=== PATIENT | male | born 1935 | race Caucasian/White ===

== ENCOUNTER 2016-08-23 23:39 | Inpatient (IN) | payer OTHER ==
--- NOTE | ~2016-08-23 | HP ---
Unit #: [id number] #: [id number] Patient: HARDIK ALONSO [id number] [address] [place], [place] [address] [id number] I MR#: [id number] NAME: HARDIK ALONSO. ROOM: 53751 Age: 80 Sex: M Admission Date: 08/24/2016 : 1935 Attending Physician: Carlie Denton M.D. Primary Care Physician: Carlie Denton M.D. HISTORY AND PHYSICAL CHIEF COMPLAINT Shortness of breath. HISTORY OF PRESENT ILLNESS The patient is an 80-year-old male with a history of stroke in the past. Presented with shortness of breath. He came in through the emergency room. He was already on 2 liters of home O2. He has been short of breath for the last few days. He presented to the emergency room. Patient really could not provide a history at this time, quite confused. He was subsequently admitted. Here in the emergency room, the patient was noted to be in sinus tachycardia with premature atrial complexes. He has been seen by pulmonary at the time of my evaluation, and he has been started on vancomycin, Levaquin, broad-spectrum antibiotics. He was put on BiPAP with some improvement. PAST MEDICAL HISTORY 1. Significant for cerebrovascular accident. 2. Carotid artery disease. 3. Hypertension. 4. Benign prostatic hypertrophy. 5. B12 deficiency. 6. Hyperlipidemia. 7. Depression. HOME MEDICATIONS 1. Cyanocobalamin 100 mcg p.o. daily. 2. Aspirin 81 mg p.o. daily. 3. Colace 100 mg p.o. daily. l 4. Vitamin D3 800 units p.o. daily. 5. Protonix 40 mg before breakfast. 6. Proscar 5 mg p.o. daily. 7. Plavix 75 mg p.o. daily. 8. Zoloft 150 mg p.o. daily. 9. Afrin Nasal [place] b.i.d. 10. Chlorthalidone 12.5 mg b.i.d. 11. Baclofen 10 mg p.o. t.i.d. 12. Simvastatin 20 mg p.o. at bedtime. 13. Mirtazapine 7.5 mg at bedtime. 14. Milk of Magnesia 30 mL p.o. daily. 15. Tylenol 650 mg p.o. q.4 hours. 16. Coreg 3.125 mg p.o. b.i.d. 17. Hydralazine 100 mg p.o. t.i.d. Unit #: [id number] #: [id number] Patient: HARDIK ALONSO 18. Nepro 60 mL b.i.d. ALLERGIES Penicillin, tetanus toxoid. SOCIAL HISTORY snf resident under my care. FAMILY HISTORY Family history of coronary artery disease. REVIEW OF SYSTEMS Unable to obtain at this time. PHYSICAL EXAMINATION GENERAL: He was comfortable. Not in acute distress. Seemed to be off BiPAP at this time. VITAL SIGNS: Blood pressure 116/63, pulse 72, respiratory rate 18, temperature 97.1. HEENT: Pupils are equal, round and reactive to light and accommodation. NECK: Supple without thyromegaly. EXTREMITIES: He had some contractures of the right upper extremity. COMPRESSED GASES TESTER: Limited examination, as the patient is unable to fully follow commands at this time. CHEST: Transmitted sounds with wheezing. The patient is on oxygen at this time. Reduced breath sounds in lung bases posteriorly. CARDIOVASCULAR: First and second heart sounds. ABDOMEN: Full. Moved with respirations. EXTREMITIES: Mild 1+ bilateral lower extremity edema. LYMPHATIC SYSTEM: No enlarged peripheral lymphadenopathy that I could appreciate. DIAGNOSTIC DATA LABORATORY: He had chemistries - Glucose of 124, BUN and creatinine 14 and 1.7, sodium and potassium 144 and 3.9, chloride and bicarbonate 117 and 20 respectively. CBC - WBC 7.8, hemoglobin and hematocrit 10.8 and 34.8 with a platelet count of 204, neutrophil count of 88.5, lymphocytes of 5.6. IMAGING: He had chest x-ray - No definite acute process. He had a CT of his chest without contrast, which showed multifocal consolidations greatest in the right lobe consistent with pneumonia. Followup to clearing was suggested. ASSESSMENT AND PLAN 1. Aspiration pneumonia. IV antibiotics, pulmonary consulted. 2. Cerebrovascular accident. 3. Gastroesophageal reflux disease. Continue Protonix IV. 4. Hyperlipidemia. Continue simvastatin. 5. Coronary artery disease, hypertension. Continue Coreg, hydralazine. Will check a CBC, BMP. Patient is scheduled to be admitted to the ICU. He was on BiPAP but is currently being weaned off BiPAP. Should his respiratory status deteriorate, he may or may not need to be intubated. He has had a speech eval done, which has cleared the patient of a pureed diet with honey thick liquids. 6. Code status: DNR. EMS DNR is (1) . Unit #: [id number] #: [id number] Patient: HARDIK ALONSO NOTE: Time spent on this H and P is about 32 minutes. Dictated by Shaheen Guzman/kennedy TD: 08/24/2016 13:48 JOB #: [id number] HISTORY AND PHYSICAL Page 1 of 1 X Carlie Denton MD HISTORY AND PHYSICAL
--- NOTE | ~2016-08-23 | CR63 ---
[facility] A Service of [facility] RADIOLOGY TEXT RESULTS PATIENT: HARDIK ALONSO LOCATION: [facility] : 33 UNIT #: [id number] AGE: [address]: Michele Piña MD SEX: M ORDER DR: [id number] [place] [id number] [facility]. [place], [place] [address] [id number] I MR#: [id number] Acc #: [id number] NAME: HARDIK ALONSO : 1935 SEX: M STUDY DATE/TIME: 08/26/2016 8:01 UNIT: [facility] ROOM: [facility] STUDY DESCRIPTION: CR Chest 2 View Attending Physician: Michele Piña M.D. Ordering Physician: Jodee Goodson M.D. Primary Care Physician: Rahul Bedoya M.D. MEDICAL IMAGING REPORT This report is preliminary unless electronic signature is present EXAM 2 views chest, 08/26/2016 HISTORY Pneumonia FINDINGS PA and lateral radiographs of the chest are presented. Comparison 08/25/2016. Continued extensive air space disease throughout the right lung with a lower lobe predominance. There is an increase in patchy air space disease at the left lung base compared to the prior study. Left mid to upper lung zones are clear. Appearance most consistent with multifocal pneumonia most pronounced in the right lower lobe. There is some underlying vascular prominence. Correlate with any clinical indications of vascular congestion. No definite left pleural effusion. There may be a small right pleural effusion. There is no pneumothorax. Heart normal in size. No acute appearing bony abnormality. Dictated by... Kishor Thomas M.D. THIS IS AN ELECTRONICALLY VERIFIED REPORT Kishor Thomas M.D. at 08/27/2016 5:58 PM GENNA/amara TD: 08/26/2016 10:37 JOB #: [id number] MEDICAL IMAGING REPORT [facility] A Service [facility] RADIOLOGY TEXT RESULTS PATIENT: HARDIK ALONSO LOCATION: [facility] 54 : 33 UNIT #: [id number] AGE: [address]: Michele Piña MD SEX: M ORDER DR: Page 1 of 1 COPY
--- NOTE | ~2016-08-23 | DS ---
Unit #: [id number] #: [id number] Patient: HARDIK ALONSO [id number] [address] [address] [id number] I MR#: [id number] NAME: HARDIK ALONSO. ROOM: 547 Age: 80 Sex: M Admission Date: 08/24/2016 : 1935 Discharge Date: 08/27/2016 Attending Physician: Michele Piña M.D. Primary Care Physician: Rahul Bedoya M.D. DISCHARGE SUMMARY DISCHARGE DIAGNOSES 1. Acute hypoxic respiratory failure. 2. Aspiration pneumonia. 3. History of cerebrovascular accident and aphasia. 4. Reflux. 5. Coronary artery disease. 6. Hypertension. 7. Immobilization syndrome. HOSPITAL COURSE The patient is an 80-year-old male who resides [facility]. He was brought to the emergency department secondary to increasing shortness of breath that began two days prior. The patient has a history of CVA and has been aphasic and was unable to provide a history. In the emergency department, the patient was started on vancomycin and Levaquin for healthcare-associated pneumonia. He initially required BiPAP and was admitted to the ICU. Once his oxygen requirements improved, the patient was moved from the ICU. His antibiotics were changed to cover aspiration. The patient was taken for bronchoscopy, and bronchoalveolar lavage is growing gram-negative rods. The patient's oxygen requirements are much improved. He is currently saturating in the 90s on two liters which is his baseline. As a result, [facility] is being [facility] to [facility] an [facility]. DISCHARGE MEDICATIONS 1. Combivent per nebulizer q.6 hours. 2. Tylenol 650 mg p.o. q.4 hours p.r.n. fever. 3. Mirtazapine 7.5 mg p.o. at bedtime. 4. Zoloft 150 mg daily. 5. Coreg 3.125 mg b.i.d. 6. Colace 100 mg daily. 7. Milk of Magnesia 30 mL p.o. daily as needed. 8. Chlorthalidone 12.5 mg b.i.d. 9. Simvastatin 20 mg at bedtime. 10. Hydralazine 100 mg t.i.d. 11. Proscar 5 mg daily. 12. Aspirin 81 mg daily. 13. Plavix 75 mg daily. 14. Protonix 40 mg daily. 15. Baclofen 10 mg t.i.d. 16. Afrin 1 spray to each nostril twice daily. Unit #: [id number] #: [id number] Patient: HARDIK ALONSO 17. Vitamin D3 at 800 units p.o. daily. 18. Cyanocobalamin 1000 mcg daily. 19. Nepro 60 mL b.i.d. 20. Prednisone taper 40 mg for 3 days, then 30 mg for 3 days, then 20 mg for 3 days, then 10 mg for 3 days. 21. Augmentin 875 mg b.i.d. x3 days. FOLLOWUP [facility]. He should follow up with his prison physician at the end of his antibiotic course. Dictated by... Shaheen Patterson/tatyana TD: 08/27/2016 15:38 JOB #: [id number] DISCHARGE SUMMARY Page 1 of 1 X Michele Piña MD X DISCHARGE SUMMARY
--- NOTE | ~2016-08-23 | EKG ---
PATIENT: HARDIK ALONSO UNIT #: [id number] Ventricular Rate: 102 BPM Atrial Rate: 102 BPM P-R Interval: 124 ms QRS Duration: 76 ms Q-T Interval: 340 ms QTC Calculation(Bezet): 443 ms P Palmer: 34 degrees Calculated R Palmer: 61 degrees Calculated T Palmer: 61 degrees Diagnosis Line: Sinus tachycardia with Premature atrial complexes Diagnosis Line: with Aberrant conduction Diagnosis Line: Junctional ST depression, probably normal Diagnosis Line: Borderline ECG Diagnosis Line: When compared with ECG of 15-APR-2014 15:02, Diagnosis Line: Aberrant conduction is now Present Diagnosis Line: Confirmed by CAMDEN CASSIDY MD ([id number]) on Diagnosis Line: 08/25/2016 9:38:33 PM INTERPRETING MD: KHANH STROUD
--- NOTE | ~2016-08-23 | CR72 ---
[facility] Service of [facility] RADIOLOGY TEXT RESULTS PATIENT: HARDIK ALONSO LOCATION: [place] [address] : [birth year] UNIT #: [id number] AGE: [address]: Michele Piña MD SEX: M ORDER DR: [id number] [facility] [address] [facility]. [place], [place] [address] [id number] I MR#: [id number] Acc #: [id number] NAME: HARDIK ALONSO. : 1935 SEX: M STUDY DATE/TIME: 08/25/2016 5:48 UNIT: [facility] ROOM: [facility] STUDY DESCRIPTION: CR Chest Single View Portable Attending Physician: Michele Piña M.D. Ordering Physician: Jodee Goodson M.D. Primary Care Physician: Rahul Bedoya M.D. MEDICAL IMAGING REPORT This report is preliminary unless electronic signature is present EXAM Portable chest. INDICATIONS Shortness of air. PROCEDURE Frontal view chest. COMPARIOSN 08/24/2016. FINDINGS Heart size stable. Patchy opacity in the right mid and lower lung zone is either increased or obscured by the patient's hand on the prior. IMPRESSION Patchy opacities in the right mid and lower lung zones suspicious for pneumonia. This is either increasing or was obscured by patient's hand on the previous study. Dictated by... Rocky Jara M.D. THIS IS AN ELECTRONICALLY VERIFIED REPORT Rocky Jara M.D. at 08/26/2016 9:58 PM EED/gz TD: 08/25/2016 09:13 JOB #: [id number] MEDICAL IMAGING REPORT Page 1 of 1 COPY
--- NOTE | ~2016-08-23 | CO ---
Unit #: [id number] #: [id number] Patient: HARDIK ALONSO [id number] [address] [address] [id number] I MR#: [id number] NAME: HARDIK ALONSO ROOM: 33414 Age: 80 Sex: M Admission Date: 08/24/2016 : 1935 Attending Physician: Carlie Denton M.D. Primary Care Physician: Rahul Bedoya M.D. CONSULTATION REPORT REASON FOR CONSULTATION Respiratory failure, critical care management. CHIEF COMPLAINT Shortness of breath. HISTORY OF PRESENT ILLNESS An 80-year-old male, past medical history significant for renal failure, stroke, carotid artery disease, hypertension, dyslipidemia, depression and COPD. Presents with the complaint of shortness of breath and has been found to be in acute respiratory failure, placed on BiPAP. Currently on BiPAP, responsive. I am seeing the patient at the bedside. Complaining of mild shortness of breath. REVIEW OF SYSTEMS Unobtainable. Patient being on BiPAP. PHYSICAL EXAMINATION VITAL SIGNS: Temperature 98, pulse rate 70, respirations 12, blood pressure 130/70. NEUROLOGIC: He is awake, alert, following commands. CVS: S1, S2. RESPIRATORY: Bilateral air entry. Bilateral mild rhonchi. GI: Nontender. Soft. Bowel sounds are positive. EXTREMITIES: Positive edema. SKIN: No rashes, no ulcer. LYMPHATIC: No lymphadenopathy. DIAGNOSTIC STUDIES LABS: Labs and imaging have been reviewed. His BUN is 40, creatinine 1.7, chloride 117, bicarb 20. His white count is 7, hemoglobin 10, hematocrit 35, platelet count 205. ASSESSMENT 1. Acute respiratory failure. 2. Acute exacerbation of COPD. 3. Acute renal failure. 4. Possible aspiration pneumonia. PLAN Plan is to continue the patient on IV fluid. Continue him on IV Levaquin and clindamycin. Will add IV steroid. GI and DVT prophylaxis. Two-D echo. Troponin. Patient will be closely monitored. Please see orders for detailed plan. Unit #: [id number] #: [id number] Patient: HARDIK ALONSO Thank you very much for this consultation. Dictated by... Shaheen Bell/kennedy TD: 08/24/2016 11:07 JOB #: [id number] CONSULTATION REPORT Page 1 of 1 X Jodee Goodson MD CONSULTATION REPORT
--- NOTE | ~2016-08-23 | CT57 ---
[facility] A Service of [facility] RADIOLOGY TEXT RESULTS PATIENT: HARDIK ALONSO LOCATION: C5 547-01 : 33 UNIT #: [id number] AGE: [address]: Michele Piña MD SEX: M ORDER DR: [id number] [facility] [address] [facility]. [place], [place] [address] [id number] I MR#: [id number] Acc #: [id number] NAME: HARDIK ALONSO : 1935 SEX: M STUDY DATE/TIME: 08/24/2016 8:11 UNIT: [facility] ROOM: 72969 STUDY DESCRIPTION: CT Chest Wo Cont Attending Physician: Carlie Denton M.D. Ordering Physician: Jodee Goodson M.D. Primary Care Physician: Rahul Bedoya M.D. MEDICAL IMAGING REPORT This report is preliminary unless electronic signature is present EXAM CT of the chest without contrast INDICATION Shortness of breath for 1 day. Aspiration pneumonia. TECHNIQUE CT of the chest was performed without contrast. Coronal and sagittal reformatted images were obtained. This CT exam was performed with one or more of the following radiation dose reduction techniques: automatic exposure control, adjustment of mA and/or kV according to patient size, and iterative reconstruction. COMPARISON No comparisons. FINDINGS There is dense consolidation within the right lower lobe and also in the posterior right upper lobe and patchy areas of consolidation elsewhere in the lungs but greatest in the right lung. Overall the findings are most consistent with pneumonia and followup to clearing is suggested. There are prominent mediastinal lymph nodes which are likely reactive given the findings in the lungs. There are also calcified mediastinal lymph nodes. No pleural or pericardial effusion. Limited imaging of the upper abdomen is unremarkable. Bone windows are unremarkable. IMPRESSION Multifocal consolidations greatest in the right lung most consistent with pneumonia. Followup to clearing is suggested. Dictated by... Rojelio Suazo M.D. [facility] A Service of [facility] RADIOLOGY TEXT RESULTS PATIENT: HARDIK ALONSO LOCATION: [facility] 547-01 : 33 UNIT #: [id number] AGE: [address]: Michele Piña MD SEX: M ORDER DR: THIS IS AN ELECTRONICALLY VERIFIED REPORT Rojelio Suazo M.D. at 08/25/2016 12:35 PM Leslye TD: 08/24/2016 10:04 JOB #: [id number] MEDICAL IMAGING REPORT Page 1 of 1 COPY
--- NOTE | ~2016-08-23 | CR72 ---
[facility] A Service of [facility] RADIOLOGY TEXT RESULTS PATIENT: HARDIK ALONSO [address] [birth year] UNIT #: [id number] AGE: [address]: Carlie Denton MD SEX: M ORDER DR: [id number] [facility] [address] [facility]. [place], [place] [address] [id number] MR#: [id number] Acc #: [id number] NAME: HARDIK ALONSO. : 1935 SEX: M STUDY DATE/TIME: 08/24/2016 0:04 UNIT: [facility] ROOM: STUDY DESCRIPTION: CR Chest Single View Portable Attending Physician: Leonardo Oliveira M.D. Ordering Physician: Leonardo Oliveira M.D. Primary Care Physician: Rahul Bedoya M.D. MEDICAL IMAGING REPORT This report is preliminary unless electronic signature is present EXAM Portable chest INDICATIONS Fever, shortness of air today. PROCEDURE Frontal view chest. COMPARISON 04/20/2014 FINDINGS Heart size is not significantly changed. The patient's right hand obscures the right lung base, but was immobile. Otherwise no dense consolidation is seen. No visible pneumothorax. IMPRESSION No definite active process Dictated by... Rocky Jara M.D. THIS IS AN ELECTRONICALLY VERIFIED REPORT Rocky Jara M.D. at 08/24/2016 10:04 PM WILVER/romero TD: 08/24/2016 01:57 JOB #: [id number] MEDICAL IMAGING REPORT Page 1 of 1 COPY
--- NOTE | ~2016-08-23 | OR ---
Unit #: [id number] #: [id number] Patient: HARDIK ALONSO [id number] [address] [address] [id number] I MR#: [id number] NAME: HARDIK ALONSO. ROOM: 547 Date of Procedure: 08/26/2016 Admission Date: 08/24/2016 Surgeon: Jodee Goodson M.D. : 1935 Attending Physician: Michele Piña M.D. Primary Care Physician: Rahul Bedoya M.D. PROCEDURE OPERATIVE NOTE PROCEDURE PERFORMED Bronchoscopy and bronchoalveolar lavage. INDICATION FOR PROCEDURE Pneumonia. PREPROCEDURE DIAGNOSIS Pneumonia. POSTPROCEDURE DIAGNOSIS Pneumonia. DETAILS OF PROCEDURE After taking consent from the patient, explaining the risks and benefits, patient was placed in the appropriate position. The bronchoscope was introduced through the oral cavity. The vocal cords appeared to be symmetrically moving toward the midline. Trachea was normal. The thierry was sharp. We examined the right upper lobe, right middle lobe, right lower lobe, left upper lobe, lingula and left lower lobe. No endobronchial lesions were found. There were thick mucoid secretions in both lungs, which were therapeutically suctioned. Then, we did a bronchoalveolar lavage in the right lower lobe area with 100 mL of saline in and 30 mL back. The patient tolerated the procedure very well. No complications happened. Dictated by... Shaheen Bell TD: 09/05/2016 10:34 JOB #: [id number] Unit #: [id number] #: [id number] Patient: HARDIK ALONSO PROCEDURE OPERATIVE NOTE Page 1 of 1 X Jodee Goodson MD PROCEDURE OPERATIVE NOTE
[~2016-08-23 23:39] MED LIST: ACETAMINOPHEN PO; AFRIN15 M1; AMLODIPINE BESYL5 MG PO; ASPIRIN81 M2 PO; ASPIRIN81 MG PO; B12 HEALTH1000 MCG/1 PO; BACLOFEN10 MG PO; CHLORTHALIDONE25 MG PO; CITRUCEL PO; CLOPIDOGREL75 MG PO; COLACE PO; COLACE50 MG/5 M1 PO; COMBIVENT U/D3 M1 INH; COREG3.125 MG PO; COREG6.25 MG PO; DOCUSATE SODIU100 MG PO; FAMOTIDINE PO; FLEXERIL PO; FLOMAX0.4 M1 PO; HYDRALAZINE HC100 MG PO; HYDRALAZINE HCL25 MG PO; JALYN 0.5-0.41 EACH PO; K-DUR20 ME1 PO; LOVENOX30 MG/0.3 INJ; MELATONIN1 MG PO; MELATONIN3 M4 PO; MILK OF MAGNESIA PO; MIRTAZAPINE7.5 MG PO; NEPHRO PO; NORVASC PO; NYSTATIN5 ML PO; OMEGA 3 FISH OI1 CAP PO; PLAVIX PO; PROSCAR5 MG PO; PROTONIX PO; SERTRALINE HCL50 MG PO; SIMVASTATIN20 MG PO; TYLENOL325 M1 PO; VITAMIN B-1100 M1 PO; VITAMIN B12 PO; VITAMIN B12-FO1 EACH; VITAMIN D3400 UNI1 PO; ZESTRIL10 M2 PO; ZOCOR10 MG PO; ZOFRAN PO; ZOLOFT PO; ZOLOFT50 MG PO
[2016-08-23] MEDS ORDERED: CYANOCOBALAMI100 MCG PO (23:59)
[2016-08-24 01:04] LABS: POC - CKMB 1.1 ng/mL (0.0-7.9); POC - TROPONIN <0.05 ng/mL (<=0.05)
[2016-08-24 01:08] LABS: ARTERIAL BLOOD GAS CARBOXY HB 0.1 %sat (0.0-9.0); ARTERIAL BLOOD GAS HCO3 23.3 mmol/L; ARTERIAL BLOOD GAS MET HB 0.8 %sat (0.0-2.0); ARTERIAL BLOOD GAS pH 7.218 (7.350-7.450)
[2016-08-24 01:10] LABS: ARTERIAL BLOOD GAS PCO2 57.3 mmHg (35.0-45.0); ARTERIAL DRAW? YES
[2016-08-24 01:11] LABS: ARTERIAL BLOOD GAS ALLEN TEST NORMAL; ARTERIAL BLOOD GAS ART SITE LEFT RADIAL
[2016-08-24 01:39] LABS: BASOPHIL# 0.1 X10e3 (0-0.3); BASOPHIL% 0.6 % (0-2.5); EOSINOPHIL# 0.1 X10e3 (0-0.7); EOSINOPHIL% 1.1 % (0.0-7.0); HEMATOCRIT 39.6 % (38.0-50.0); HEMOGLOBIN 12.4 gm/dL (13.0-16.0); LYMPHOCYTE# 1.3 X10e3 (1.0-3.5); MEAN CELL VOLUME 89.2 FL (83-96); MEAN CORPUSCULAR HEMOGLOBIN 27.8 PG (28-34); MEAN CORPUSCULAR HGB CONC 31.2 g/dL (30-36); MEAN PLATELET VOLUME 8.9 FL (6.5-11.5); MONOCYTE# 0.4 X10e3 (0-1.0); MONOCYTE% 4.1 % (3.0-12.0); NEUTROPHIL# 7.1 X10e3 (1.5-7.1); NEUTROPHIL% 79.2 % (40-75); PLATELET COUNT 285 X10e3 (140-420); RED BLOOD COUNT 4.44 X10e (3.90-5.60); RED CELL DISTRIBUTION WIDTH 13.9 % (11.0-15.5); WHITE BLOOD COUNT 8.9 X10e3 (4.0-10.5)
[2016-08-24 01:40] LABS: DIFF IND NO
[2016-08-24 01:49] LABS: INR 0.9; PARTIAL THROMBOPLASTIN TIME 26.2 SECONDS (23.5-31.3); PROTHROMBIN TIME (PATIENT) 9.9 SECONDS (9.6-11.5)
[2016-08-24 01:54] LABS: ALBUMIN SERUM 3.9 g/dL (3.5-5.0); BILIRUBIN, DIRECT 0.1 mg/dL (0.0-0.2); BILIRUBIN,INDIRECT 0.3 mg/dL (0.0-0.9); BILIRUBIN,TOTAL 0.4 mg/dL (0.2-2.0); BUN/CREATININE RATIO 20.95; CALCIUM SERUM 8.8 mg/dL (8.4-10.2); CREATININE SERUM 2.1 mg/dL (0.6-1.4); GLOM FILT RATE Estimated 28.5 mL/min (>60); POTASSIUM 4.1 mmol/L (3.5-5.1); PROTEIN TOTAL SERUM 7.8 g/dL (6.0-8.3)
[2016-08-24 03:45] LABS: ARTERIAL BLD GAS O2 SATURATION 93.6 % (90.0-100.0); ARTERIAL BLOOD GAS CARBOXY HB 0.5 %sat (0.0-9.0); ARTERIAL BLOOD GAS HCO3 21.7 mmol/L; ARTERIAL BLOOD GAS MET HB 0.8 %sat (0.0-2.0); ARTERIAL BLOOD GAS pH 7.233 (7.350-7.450)
[2016-08-24 03:46] LABS: ARTERIAL BLOOD GAS ALLEN TEST NORMAL; ARTERIAL BLOOD GAS ART SITE RIGHT RADIAL; ARTERIAL BLOOD GAS DELIVERY BIPAP 16/6; ARTERIAL BLOOD GAS PCO2 51.4 mmHg (35.0-45.0); ARTERIAL BLOOD GAS PO2 77.2 mmHg (80.0-100); ARTERIAL DRAW? YES
[2016-08-24 04:07] LABS: URINE SOURCE CATH
[2016-08-24 04:22] LABS: URINE APPEARANCE CLOUDY; URINE BILIRUBIN NEG (NEG); URINE BLOOD NEG (NEG); URINE COLOR YELLOW; URINE GLUCOSE NEG (NEG); URINE KETONE NEG (NEG); URINE LEUKOCYTE ESTERASE TRACE (NEG); URINE NITRATE NEG (NEG); URINE PROTEIN NEG (NEG); URINE SPECIFIC GRAVITY 1.015 (1.003-1.035); URINE UROBILINOGEN 0.2 MG/DL (NEG)
[2016-08-24 04:25] LABS: URINE BACTERIA AUWI NEG (NEGATIVE); URINE SQUAMOUS EPITHELIAL CELL NONE SEEN /[HPF]; UWBCS1 AUWI 0-2 (0-5)
[2016-08-24 04:34] LABS: CULTURE INDICATED? NO
[2016-08-24 05:08] LABS: BASOPHIL% 0.2 % (0-2.5); DIFF IND NO; EOSINOPHIL% 0.2 % (0.0-7.0); HEMATOCRIT 34.8 % (38.0-50.0); HEMOGLOBIN 10.8 gm/dL (13.0-16.0); LYMPHOCYTE# 0.4 X10e3 (1.0-3.5); LYMPHOCYTE% 5.6 % (17.0-45.0); MEAN CELL VOLUME 89.9 FL (83-96); MEAN CORPUSCULAR HEMOGLOBIN 27.8 PG (28-34); MEAN PLATELET VOLUME 8.7 FL (6.5-11.5); MONOCYTE# 0.4 X10e3 (0-1.0); MONOCYTE% 5.5 % (3.0-12.0); NEUTROPHIL# 6.9 X10e3 (1.5-7.1); NEUTROPHIL% 88.5 % (40-75); PLATELET COUNT 205 X10e3 (140-420); RED BLOOD COUNT 3.88 X10e (3.90-5.60); RED CELL DISTRIBUTION WIDTH 13.7 % (11.0-15.5); WHITE BLOOD COUNT 7.8 X10e3 (4.0-10.5)
[2016-08-24 05:44] LABS: BUN/CREATININE RATIO 23.52; CALCIUM SERUM 7.9 mg/dL (8.4-10.2); CREATININE SERUM 1.7 mg/dL (0.6-1.4); GLOM FILT RATE Estimated 36.8 mL/min (>60); POTASSIUM 3.9 mmol/L (3.5-5.1)
[2016-08-24 09:17] LABS: ARTERIAL BLD GAS O2 SATURATION 95.6 % (90.0-100.0); ARTERIAL BLOOD GAS CARBOXY HB 0.6 %sat (0.0-9.0); ARTERIAL BLOOD GAS HCO3 21.1 mmol/L; ARTERIAL BLOOD GAS MET HB 0.9 %sat (0.0-2.0); ARTERIAL BLOOD GAS PCO2 48.6 mmHg (35.0-45.0); ARTERIAL BLOOD GAS PO2 92.1 mmHg (80.0-100); ARTERIAL BLOOD GAS pH 7.245 (7.350-7.450)
[2016-08-24 09:18] LABS: ARTERIAL BLOOD GAS ALLEN TEST NORMAL; ARTERIAL BLOOD GAS ART SITE RIGHT RADIAL; ARTERIAL BLOOD GAS DELIVERY BIPAP 18/4; ARTERIAL DRAW? YES
[2016-08-24 15:06] LABS: ARTERIAL BLOOD GAS ART SITE RIGHT RADIAL; ARTERIAL BLOOD GAS CARBOXY HB 0.5 %sat (0.0-9.0); ARTERIAL BLOOD GAS DELIVERY NASAL CANNULA; ARTERIAL BLOOD GAS HCO3 21.6 mmol/L; ARTERIAL BLOOD GAS MET HB 0.5 %sat (0.0-2.0); ARTERIAL BLOOD GAS PCO2 45.5 mmHg (35.0-45.0); ARTERIAL BLOOD GAS pH 7.285 (7.350-7.450); ARTERIAL DRAW? YES
[2016-08-25 03:47] LABS: ARTERIAL BLOOD GAS CARBOXY HB 0.4 %sat (0.0-9.0); ARTERIAL BLOOD GAS HCO3 26.5 mmol/L; ARTERIAL BLOOD GAS MET HB 1.4 %sat (0.0-2.0); ARTERIAL BLOOD GAS pH 7.327 (7.350-7.450)
[2016-08-25 03:48] LABS: ARTERIAL BLOOD GAS ALLEN TEST NORMAL; ARTERIAL BLOOD GAS ART SITE LEFT RADIAL; ARTERIAL BLOOD GAS DELIVERY NASAL CANNULA; ARTERIAL BLOOD GAS LITER FLOW 3.5; ARTERIAL BLOOD GAS PCO2 50.7 mmHg (35.0-45.0); ARTERIAL DRAW? YES
[2016-08-25 04:12] LABS: HEMATOCRIT 29.5 % (38.0-50.0); HEMOGLOBIN 9.3 gm/dL (13.0-16.0); MEAN CELL VOLUME 89.1 FL (83-96); MEAN CORPUSCULAR HGB CONC 31.4 g/dL (30-36); MEAN PLATELET VOLUME 9.1 FL (6.5-11.5); RED BLOOD COUNT 3.31 X10e (3.90-5.60); RED CELL DISTRIBUTION WIDTH 13.7 % (11.0-15.5)
[2016-08-25 04:13] LABS: WHITE BLOOD COUNT 14.5 X10e3 (4.0-10.5)
[2016-08-25 04:35] LABS: ALBUMIN SERUM 2.9 g/dL (3.5-5.0); BILIRUBIN,TOTAL 0.4 mg/dL (0.2-2.0); BUN/CREATININE RATIO 25.33; CALCIUM SERUM 7.7 mg/dL (8.4-10.2); CREATININE SERUM 1.5 mg/dL (0.6-1.4); GLOM FILT RATE Estimated 42.8 mL/min (>60); POTASSIUM 4.3 mmol/L (3.5-5.1)
[2016-08-26 03:44] LABS: ARTERIAL BLD GAS O2 SATURATION 98.6 % (90.0-100.0); ARTERIAL BLOOD GAS CARBOXY HB 0.4 %sat (0.0-9.0); ARTERIAL BLOOD GAS PCO2 49.3 mmHg (35.0-45.0)
[2016-08-26 03:46] LABS: ARTERIAL BLOOD GAS ALLEN TEST NORMAL; ARTERIAL BLOOD GAS ART SITE LEFT RADIAL; ARTERIAL BLOOD GAS DELIVERY NASAL CANNULA; ARTERIAL BLOOD GAS LITER FLOW 2.5; ARTERIAL DRAW? YES
[2016-08-26 05:35] LABS: BASOPHIL% 0.1 % (0-2.5); HEMATOCRIT 28.1 % (38.0-50.0); HEMOGLOBIN 8.8 gm/dL (13.0-16.0); LYMPHOCYTE# 0.6 X10e3 (1.0-3.5); LYMPHOCYTE% 4.6 % (17.0-45.0); MEAN CELL VOLUME 87.9 FL (83-96); MEAN CORPUSCULAR HEMOGLOBIN 27.6 PG (28-34); MEAN CORPUSCULAR HGB CONC 31.4 g/dL (30-36); MEAN PLATELET VOLUME 9.2 FL (6.5-11.5); MONOCYTE# 0.5 X10e3 (0-1.0); MONOCYTE% 3.7 % (3.0-12.0); NEUTROPHIL# 12.1 X10e3 (1.5-7.1); NEUTROPHIL% 91.6 % (40-75); PLATELET COUNT 223 X10e3 (140-420); RED CELL DISTRIBUTION WIDTH 13.8 % (11.0-15.5); WHITE BLOOD COUNT 13.2 X10e3 (4.0-10.5)
[2016-08-26 05:39] LABS: DIFF IND NO
[2016-08-26 06:32] LABS: ALBUMIN SERUM 2.6 g/dL (3.5-5.0); BILIRUBIN,TOTAL 0.9 mg/dL (0.2-2.0); CALCIUM SERUM 7.7 mg/dL (8.4-10.2); CREATININE SERUM 1.5 mg/dL (0.6-1.4); GLOM FILT RATE Estimated 42.8 mL/min (>60); POTASSIUM 3.8 mmol/L (3.5-5.1)
[2016-08-26 10:27] LABS: BODY FLUID APPEARANCE TURBID; BODY FLUID SOURCE BRONCHIAL LAVAGE
== END 2016-08-27 20:34 | DRG 166 ==
LOC: CED 23:39 → C5B 08-24 02:40 → CEDOF 08-24 02:40 → CED 08-24 02:47 → CEDOF 08-24 02:47 → CICCU3 08-24 15:37 → CEDOF 08-24 15:37 → CICCU3 08-24 15:37 → C5B 08-25 11:09
PROVIDERS: Emergency Medicine; Internal Medicine
PROC: B24BZZZ Ultrasonography of Heart with Aorta (ICD-10-PCS; 2016-08-24)
PROC: 0B9M8ZZ Drainage of Bilateral Lungs, Via Natural or Artificial Opening Endoscopic (ICD-10-PCS; principal; 2016-08-26 09:26)
PROC: 0B9F8ZX Drainage of Right Lower Lung Lobe, Via Natural or Artificial Opening Endoscopic, Diagnostic (ICD-10-PCS; 2016-08-26 09:26)
DX: J69.0 Pneumonitis due to inhalation of food and vomit (principal); J96.01 Acute respiratory failure with hypoxia; N17.9 Acute kidney failure, unspecified; J44.1 Chronic obstructive pulmonary disease with (acute) exacerbation; I69.320 Aphasia following cerebral infarction; K21.9 Gastro-esophageal reflux disease without esophagitis; I25.10 Atherosclerotic heart disease of native coronary artery without angina pectoris; I10 Essential (primary) hypertension; M62.3 Immobility syndrome (paraplegic); E78.5 Hyperlipidemia, unspecified; F32.9 Major depressive disorder, single episode, unspecified; Z66 Do not resuscitate; Z79.82 Long term (current) use of aspirin; R00.0 Tachycardia, unspecified; F17.210 Nicotine dependence, cigarettes, uncomplicated; B96.89 Other specified bacterial agents as the cause of diseases classified elsewhere; Z88.0 Allergy status to penicillin; Z88.7 Allergy status to serum and vaccine
CPT/HCPCS: 36415; 36600; 51701; 71010; 71020; 71250; 74230; 80048; 80053; 80076; 81003; 82553; 82803; 83605; 83880; 84484; 85025; 85027; 85610; 85730; 87040; 87070; 87077; 87102; 87106; 87116; 87186; 87205; 87206; 87252; 87254; 87278; 87449; 87899; 88108; 88305; 88312; 89051; 92610; 92611; 93005; 93306; 94640; 94660; 94760; 94761; 96361; 96365; 96375; 99285; G8996-GN; G8997-GN; J1956; J2405; J2930